=== PATIENT | male | born 1970 | race Caucasian/White ===

== ENCOUNTER → 2018-05-23 10:35 | Outpatient (CLI) | payer BC | END | disposition home or self-care (01) | LOC: D.HCCARDIO 10:35 → EDSEX 10:35 → D.HCCARDIO 11:00 | DX: Z03.89 Encounter for observation for other suspected diseases and conditions ruled out (principal) ==

== ENCOUNTER → 2018-05-28 10:40 | Outpatient (CLI) | payer BC ==
[~2018-05-28 10:40] MED LIST: LISINOP/HCTZ TAB 20-; MOBIC7.5 MG PO; NORCO 10-325 TA1 TAB PO; PAXIL30 MG PO
--- NOTE | 2018-05-30 16:39 | ST ---
PATIENT:RAZ SYLVESTER MEDICAL RECORD: [id number] SEX: M LOCATION:[facility] ORDER #: ADMISSION DATE: 05/28/18 AGE OF PATIENT: 47 REFERRING PHYSICIAN: INTERPRETING PHYSICIAN: CHUCKY OCHOA MD DATE OF SERVICE: 05/28/2018 PROCEDURE: Nuclear Stress Test. INDICATION: Chest pain, hypertension, family history of coronary artery disease, smoking. He was exercised on standard Lexiscan protocol with 30 mCi of sestamibi injected at peak stress 10 mCi used previously for rest images. FINDINGS: Gated SPECT reveals preserved ejection fraction at 65% with good wall motion and thickening and brightening throughout all segments. SPECT imaging: Cardiolite was used as myocardial perfusion agent. There are 2 large areas of reversible ischemia, the first is inferiorly. This is a basal, mid, apical, inferior segment. The degree of reversibility is moderate to severe. The amount of myocardium involved is moderate. The second is anteriorly. This is basal, mid, apical, and anterior segments. The degree of reversibility is mild. The amount of myocardium involved is large between the 2 defects. OVERALL IMPRESSION: This is a significantly abnormal nuclear stress test. Reversible ischemia anteriorly and inferiorly suggestive of multivessel coronary artery disease. We will proceed with coronary angiography as followup study. TRANSINT:[id number] Voice Confirmation ID: [id number] DOCUMENT ID: [id number] CHUCKY OCHOA MD at 1639 CC: [id number] DICTATION DATE: 05/29/18 1602 EQUITIES ANALYST: 05/30/18 0721 DEP CLI 05/28/18 [place] [address]
[2018-06-05 09:19] VITALS: BMI 33.0
== END | disposition home or self-care (01) ==
LOC: D.HCCARDIO 10:40
DX: R07.9 Chest pain, unspecified (principal); I10 Essential (primary) hypertension; Z72.0 Tobacco use

== ENCOUNTER 2018-06-05 08:41 | Outpatient (CLI) | payer BC ==
[~2018-06-05] VITALS: Ht 185.4 cm; Wt 113.6 kg
--- NOTE | ~2018-06-05 | HEMODYNAMI ---
PATIENT:RAZ SYLVESTER MEDICAL RECORD: [id number] : 68 LOCATION:[facility] ADMISSION DATE: 06/05/18 Generatedon:06/05/201810:47 Patient name: RAZ SYLVESTER Patient #: [id number] SSN: DO B: 1970 Date of study: 06/05/2018 Page: Of Hemodynamic Procedure Report Patient Data Patient Demographics Procedure consent was obtained First Name: RAZ Gender: Male Last Name: HIGINIO : 1970 Patient #: [id number] Age: 47 year(s) Race: Unknown Additional ID: [id number] Contact details Address: [address] [place] [address] State: [place] City: [place] Zip code: [address] Admission Admission Data Admission Date: 06/05/2018 Admission Time: 8:41 Procedure Procedure Types Cath Procedure Diagnostic Procedure LHC LHC w/Coronaries Procedure Description Procedure Date Procedure Date: 06/05/2018 Procedure Start Time: 10:36 Procedure End Time: 10:44 Procedure Staff Name Function Pedrito Fuller MD Performing Physician Deuce Bowen RT Monitor Kelsie Mar RT Scrub Jd Evans RN Nurse Nika Galvan RN Inventory Control Specialist Procedure Data Cath Procedure Fluoroscopy Diagnostic fluoroscopy Total fluoroscopy Time: 1.7 time: 1.7 min min Diagnostic fluoroscopy Total fluoroscopy dose: 400 dose: 400 mGy mGy Contrast Material Contrast Material Type Amount (ml) Isovue 300 31 Entry Location Entry Primary Successful Side Size Upsize Upsize Entry Closure Bernal ccessful Closure Location (Fr) 1 (Fr) 2 (Fr) Remarks Device Remarks Radial Right 6 Fr Mechanical artery Short Compression Estimated blood loss: 10 ml Diagnostic catheters Device Type Used For End Catheter Placement DIAGNOSTIC [place] 110cm 5 Procedure Fr catheter ([id number]) DIAGNOSTIC AR2 MOD 5 Fr Procedure catheter ([id number]) Procedure Complications No complications Procedure Medications Medication Administration Route Dosage Oxygen etCO2 Nasal cannula 2 l/min Heparin Flush Bag added to field 2 bags (1000units/500ml NS) 0.9% NaCl I.V. 100 ml/hr Radial Cocktail added to field 1 syringe (Verapomil 2mg/Nitro 400mcg/Heparin 1500units) Lidocaine 2% added to field 20 Versed I.V. 2 mg Fentanyl I.V. 50 mcg Versed I.V. 2 mg Fentanyl I.V. 50 mcg Versed I.V. 2 mg Fentanyl I.V. 50 mcg Hemodynamics Rest Heart Rate: 83 (bpm) Snapshots Pre Cath Intra NCS Post Cath Vital Signs Time Heart Resp SPO2 etCO2 NIBP Rhythm Pain Sedation Rate (ipm) (%) (mmHg) (mmHg) Status Level (bpm) 10:08:20 86 19 98 29.9 121/78(91) NSR 0 (11) 10(A) , No pain 10:12:34 92 21 100 28.5 118/81(96) NSR 0 (11) 10(A) , No pain 10:16:50 80 26 97 26.2 104/71(82) NSR 0 (11) 10(A) , No pain 10:21:04 78 44 97 33.7 107/63(76) NSR 0 (11) 10(A) , No pain 10:25:18 80 22 97 34.4 106/68(79) NSR 0 (11) 10(A) , No pain 10:29:32 81 49 97 21.7 109/65(77) NSR 0 (11) 10(A) , No pain 10:33:42 80 23 97 23.9 108/67(89) NSR 0 (11) 10(A) , No pain 10:37:56 85 16 98 32.9 108/65(76) NSR 0 (11) 10(A) , No pain 10:42:12 88 17 96 30.7 102/52(68) NSR 0 (11) 10(A) , No pain Medications Time Medication Route Dose Verified Delivered Reason Notes Ef fectiveness by by 10:02:22 Oxygen etCO2 2 l/min Pedrito Miles Per Nasal Alina Evans RN physician cannula 10:02:30 Heparin Flush added 2 bags Pedrito Miles used for Bag to Alina Evans guest relations agent (1000units/500ml field NS) 10:02:39 0.9% NaCl I.V. 100 Pedrito Miles Per ml/hr Alina Evans RN physician 10:02:47 Radial Cocktail added 1 Pedrito Miles used for (Verapomil to syringe Alina Evans RN procedure 2mg/Nitro field 400mcg/Heparin 1500units) 10:02:55 Lidocaine 2% added 20ml Pedrito Dennisy used for to vial Alina Evans RN procedure field 10:35:29 Versed I.V. 2 mg Pedrito Nika for Alina Galvan sedation RN 10:35:36 Fentanyl I.V. 50 mcg Pedrito Nika for Alina Galvan sedation RN 10:40:30 Versed I.V. 2 mg Pedrito Nika for Alina Galvan sedation RN 10:40:34 Fentanyl I.V. 50 mcg Pedrito Nika for Alina Galvan sedation RN 10:43:03 Fentanyl I.V. 50 mcg Pedrito Nika for Alina Galvan sedation RN 10:43:55 Versed I.V. 2 mg Pedrito Nika for Alina chou supply analyst Log Time Note 9:40:03 Deuce Bowen RT(R) sent for patient. Start room use. 9:56:10 Diagnostic Cath status Elective 9:56:11 Signed procedure consent form obtained from patient. 9:56:12 Time tracking: Regular hours (M-F 7:00 - 5:00) 9:56:17 Plan of Care:Hemodynamics will remain stable., Cardiac rhythm will remain stable., Comfort level will be maintained., Respiratory function will remain adequate., Patient/ family verbilizes understanding of procedure., Procedure tolerated without complication., Recovers from procedure without complications.. 10:02:22 Oxygen 2 l/min etCO2 Nasal cannula was administered by Jd Evans RN; Per physician; 10:02:30 Heparin Flush Bag (1000units/500ml NS) 2 bags added to field was administered by Jd Evans RN; used for procedure; 10:02:39 0.9% NaCl 100 ml/hr I.V. was administered by Jd Evans RN; Per physician; 10:02:47 Radial Cocktail (Verapomil 2mg/Nitro 400mcg/Heparin 1500units) 1 syringe added to field was administered by Jd Evans RN; used for procedure; 10:02:55 Lidocaine 2% 20ml vial added to field was administered by dJ Evans RN; used for procedure; 10:03:52 Patient received from Pre/Post Procedure Room to CCL 1 Alert and oriented. Tansferred to table in Supine position. 10:03:53 Warm blankets applied, and brenda hugger turned on for patient comfort. 10:03:54 Correct patient and procedure confirmed by team. 10:03:55 ECG and BP/O2 sat monitors applied to patient. 10:07:10 Vital chart was started 10:11:19 Baseline sample Acquired. 10:11:26 Rhythm: sinus rhythm 10:11:28 Full Disclosure recording started 10:11:46 H&P Date Dictated: 05/14/2018 Within 30 days and on chart., H&P Addendum completed by physician on day of procedure. (MUST COMPLETE FOR ALL OUTPATIENTS). 10:11:47 Pre-procedure instructions explained to patient. 10:11:48 Pre-op teaching completed and patient verbalized understanding. 10:12:05 Family in waiting room. 10:12:07 Patient NPO since Midnight. 10:12:08 Is the patient allergic to Iodine/contrast media? No. 10:12:14 Is patient on blood thinner?No 10:12:16 Patient diabetic? No. 10:12:21 Previous problem with sedation/anesthesia? No ? 10:12:22 Snore? Yes 10:12:23 Sleep apnea? No 10:12:24 Deviated septum? No 10:12:24 Opens mouth fully? Yes 10:12:26 Sticks out tongue? Yes 10:12:28 Airway obstruction? No ? 10:12:31 Dentures? No ? 10:12:36 Pre procedure: right dorsailis pedis pulse 1+ Palpable, but thready & weak; easily obliterated 10:12:41 Modified Serjio's test Ulnar < 7 seconds 10:12:42 Patient pain scale 0/10 ?. 10:12:46 IV patent on arrival in left forearm with 0.9% NaCl at [facility]. 10:12:47 Lab results completed and on chart. 10:12:50 Right Radial & Right Groin area was prepped with chlora-prep and draped in sterile fashion 10:12:51 Alarms reviewed by R. N. 10:12:52 Sharps counted by scrub and verified by R.N. 10:34:37 --------ALL STOP TIME OUT------ 10:34:37 Final Timeout: patient, procedure, and site verified with staff and physician. All members of the team are in agreement. 10:34:39 Right Radial & Right Groin site verified by team. 10:34:43 Physical assessment completed. ASA score P 2 - A patient with mild systemic disease as per Pedrito Fuller MD. 10:34:46 Sedation plan: IV Moderate Sedation Medication:Versed, Fentanyl 10:35:29 Versed 2 mg I.V. was administered by Nika Galvan RN; for sedation; 10:35:36 Fentanyl 50 mcg I.V. was administered by Nika Galvan RN; for sedation; 10:35:57 Use device set Radial Dx or PCI 10:35:59 Tegaderm 4 x 4 (1626W) opened to sterile field. 10:36:01 ACIST Hand Control (00705) opened to sterile field. 10:36:01 ACIST Manifold (89611) opened to sterile field. 10:36:03 ACIST Syringe (45679) opened to sterile field. 10:36:04 Medline Cath Pack ([id number]) opened to sterile field. 10:36:04 Bag Decanter (2002S) opened to sterile field. 10:36:05 DIAGNOSTIC WIRE .035 260cm J wire (343810) opened to sterile field. 10:36:05 MBrace Wrist Support ([id number]) opened to sterile field. 10:36:21 SHEATH 6FR RAIN (5314072) NO COST SUPPLY opened to sterile field. 10:36:32 Procedure started. 10:36:37 Local anesthetic to right radial artery with Lidocaine 2% by Pedrito Fuller MD.INITIAL ACCESS ONLY 10:39:07 A 6 Fr Short sheath was inserted into the Right Radial artery 10:39:25 A DIAGNOSTIC [place] 110cm 5 Fr catheter (640082) was advanced over the wire and used for Procedure. 10:39:27 LV angiography performed. 10:39:29 LV gram done using RO 10:39:35 EF : 55 % 10:39:45 Injector settings: Ml/sec: 7, Volume: 15, 10:40:29 LCA angiography performed. 10:40:30 Versed 2 mg I.V. was administered by Nika Galvan RN; for sedation; 10:40:34 Fentanyl 50 mcg I.V. was administered by Nika Galvan RN; for sedation; 10:40:42 Catheter exchanged over wire. 10:40:56 A DIAGNOSTIC AR2 MOD 5 Fr catheter (117002F) was advanced over the wire and used for Procedure. 10:41:51 RCA angiography performed. 10:41:59 Catheter removed. 10:42:03 TR BAND Standard ([id number]) opened to sterile field. 10:42:52 Sheath removed intact; hemostasis achieved with Mechanical Compression to the Right Radial artery. 10:42:54 Procedure ended.(Physican Out) 10:43:03 Fentanyl 50 mcg I.V. was administered by Nika Galvan RN; for sedation; 10:43:45 Fluoroscopy time 01.70 minutes. 10:43:48 Fluoroscopy dose: 400 mGy 10:43:48 Flurop Dose total: 400 10:43:52 Contrast amount:Isovue 300 31ml. 10:43:54 Sharps counted by scrub and verified by R.N. 10:43:55 Versed 2 mg I.V. was administered by Nika Galvan RN; for sedation; 10:43:56 Insertion/operative site no bleeding no hematoma. 10:43:58 TR band inflated with 10cc of air. 10:44:00 Post Procedure Pulses reassessed and unchanged 10:44:02 Post-procedure physical assessment completed. ASA score P 2 - A patient with mild systemic disease as per Pedrito Fuller MD. 10:44:05 Post procedure rhythm: unchanged. 10:44:08 Estimated blood loss: 10 ml 10:44:11 Post procedure instruction explained to patient.Patient verbalizes understanding. 10:44:11 Patient needs reinforcement of post procedure teaching. 10:44:17 Procedure and supply charges have been captured, reviewed, submitted and are correct. 10:44:19 Procedure Complication : No complications 10:44:35 Vital chart was stopped 10:44:35 See physician's report for complete and final results. 10:44:37 Report given to Pre/Post Procedure Room. 10:44:39 Patient transfered to Pre/Post Procedure Room with Stretcher. 10:44:42 Procedure ended. 10:44:42 Full Disclosure recording stopped 10:46:30 End room use (Document Last) Device Usage Item Name Manufacture Quantity Catalog Hospital Part Current Minimal Lot# / Number Charge Number Stock Stock Serial# Code Tegaderm 4 3M 1 1626W 162453 162919 736240 5 x 4 (1626W) ACIST Hand Acist 1 25735 271241 940926 069922 5 Control Medical (09732) Systems Inc ACIST Acist 1 96206 067440 549101 840007 5 Manifold Medical (80651) Systems Inc ACIST Acist 1 23579 220171 676932 885530 20 Syringe Medical (17708) Systems Inc Medline Medline 1 [id number] 551057 45569 227399 5 Cath Pack ([id number]) Bag Microtek 1 2001S 679879 00783 590074 5 Decanter Medical Inc. () DIAGNOSTIC [facility] [place] 1 848009 950646 122901 555787 30 WIRE .035 260cm J wire (763229) MBrace Advanced 1 140-0250-00 720355 66833 069470 5 Wrist Vascular Support Dynamics ([id number]) SHEATH 6FR [place] 1 6926160 970988 356476 5 [facility] (1577187) NO COST SUPPLY DIAGNOSTIC Terumo 1 40-1125 403282 519436 353626 5 [place] 110cm 5 Fr catheter (544198) DIAGNOSTIC Cardinal 1 [id number] 984193 483452 777367 20 AR2 MOD 5 Health Fr catheter (884412B) TR BAND Terumo 1 [id number] 431059 184670 816556 40 Standard ([id number]) Signature Audit [place] Stage Time Signature Unsigned Intra-Procedure 06/05/2018 Deuce Bowen 10:47:09 AM RT(R) Signatures Monitor : Deuce Bowen RT Signature : Date : Time : [facility] [address] [place] [address]
[2018-06-05] MEDS ORDERED: PAXIL30 MG PO (09:14)
[2018-06-05] MEDS ORDERED: NORCO 10-325 TA1 TAB PO (09:14)
[2018-06-05] MEDS ORDERED: LISINOP/HCTZ TAB 20- (09:15)
[2018-06-05] MEDS ORDERED: MOBIC7.5 MG PO (09:16)
[2018-06-05 09:19] VITALS: BP 123/83; Ht 185.4 cm; Wt 113.6 kg
[2018-06-05 09:37] LABS: HEMATOCRIT 42.8 % (42.0-54.0); HEMOGLOBIN 14.7 g/dL (13.5-17.5); LYMPHOCYTES 20.6 % (15-50); MCH 31.7 pg (26.0-34.0); MCHC 34.3 g/dL (31.0-37.0); MCV 92.4 fL (80.0-100.0); MEAN PLATELET VOLUME 9.4 fL (7.4-10.4); NEUTROPHILS 70.6 % (40-80); PLATELET COUNT 181 10x3/uL (130-400); RBC 4.63 10x6/uL (4.20-6.10); RDW 13.1 % (11.5-14.5); WBC 7.6 10x3/uL (4.8-10.8)
[2018-06-05 09:44] LABS: ANION GAP 13.2 mmol/L (8-16); CALCIUM 8.8 mg/dL (8.5-10.1); CARBON DIOXIDE 26.9 mmol/L (21.0-32.0); CREATININE - SERUM 1.3 mg/dL (0.6-1.3); POTASSIUM - SERUM 4.1 mmol/L (3.5-5.1)
--- NOTE | 2018-06-05 11:07 | NUR ---
DR. OCHOA ROUNDED ON PT AND PT'S FAMILY.
--- NOTE | 2018-06-05 11:40 | NUR ---
RIGHT WRIST TR BAND IN PLACE. NO BLEEDING/HEMATOMA NOTED. VSS. PT SITTING UP AND EATING A SANDWICH.
--- NOTE | 2018-06-05 11:45 | NUR ---
2cc REMOVED FROM RIGHT RADIAL TR BAND. NO BLEEDING/HEMATOMA NOTED.
--- NOTE | 2018-06-05 12:00 | NUR ---
3cc OF AIR REMOVED FROM TR BAND. PT TOLERATED WELL. NO BLEEDING/HEMATOMA NOTED. VSS.
--- NOTE | 2018-06-05 12:15 | NUR ---
3cc OF AIR REMOVED FROM TR BAND. NO BLEEDING/HEMATOMA NOTED. RIGHT ARM PIV D/C'D WITH CATH TIP INTACT. PT INSTRUCTED TO GET UP AND DRESSED.
--- NOTE | 2018-06-05 12:35 | NUR ---
DISCUSSED DISCHARGE INSTRUCTIONS WITH PT AND PT'S FAMILY. THEY VOICED UNDERSTANDING. RIGHT RADIAL TR BAND REMOVED. DRESSING APPLIED. NO BLEEDING OR HEMATOMA NOTED.
--- NOTE | 2018-06-05 12:45 | NUR ---
RIGHT WRIST DRESSING C/D/I. BRACE ON RIGHT WRIST AND PT INSTRUCTED TO REMOVE AFTER 2 HOURS. THEY VOICED UNDERSTANDING. NO HEMATOMA NOTED. PT HAS ALL BELONGINGS IN HAND. TAKEN OUT TO VEHICLE BY WHEELCHAIR. NO S/S OF DISTRESS NOTED.
--- NOTE | 2018-06-05 18:37 | OP ---
PATIENT NAME: RAZ SYLVESTER MEDICAL RECORD: [id number] :68 LOCATION:[facility] ADMISSION DATE: SURGEON: CHUCKY OCHOA MD DATE OF OPERATION: 06/05/2018 PROCEDURES: 1. Left heart catheterization. 2. Selective coronary angiography. 3. Left ventriculogram. INDICATION: Chest pain compatible with angina. PROCEDURE IN DETAIL: After informed consent was obtained and after a detailed description of risks, benefits as well as alternative therapies, the patient elected to proceed with angiogram and a heart catheterization. The right radial area was prepped and draped in normal sterile fashion. Right radial artery was cannulated via modified Seldinger technique with placement of 6-Nigerien sheath. All catheters exchanged through this sheath. FINDINGS: The left ventriculogram was performed in standard 30-degree RO view, reveals good cardiac wall motion throughout all segments. Overall ejection fraction estimated 60%. SELECTIVE CORONARY ANGIOGRAPHY: Left main, left anterior descending, left circumflex, right coronary artery are all smooth-walled vessels with no angiographic evidence of coronary artery disease. OVERALL IMPRESSION: 1. No angiographic evidence of coronary artery disease. 2. Normal left heart pressures. 3. Normal left ventricular systolic function. Chest pain is noncardiac in etiology. No further cardiac workup needs to be ascertained. TRANSINT:[id number] Voice Confirmation ID: [id number] DOCUMENT ID: [id number] CHUCKY OCHOA MD at 1837 CC: [id number] DICTATION DATE: 06/05/18 1045 ANY COMMODITY SALES DELIVERER: 06/05/18 1118 DEP CLI 06/05/18 [address] [place] [address]
== END 2018-06-05 12:45 | disposition home or self-care (01) ==
LOC: D.CATH 08:41
PROVIDERS: Internal Medicine Interventional Cardiology
DX: I20.9 Angina pectoris, unspecified (principal); R94.30 Abnormal result of cardiovascular function study, unspecified

== ENCOUNTER 2019-03-18 08:08 | Emergency (ER) | payer BC ==
[~2019-03-18] VITALS: Ht 185.4 cm; Wt 113.6 kg
[2019-03-18 08:27] VITALS: BP 117/69; Ht 185.4 cm; Wt 113.6 kg
[2019-03-18] MEDS ORDERED: OXYCONTIN10 MG PO (08:28)
[2019-03-18] MEDS ORDERED: PERCOCET 7.5/321 TAB PO (08:29)
[2019-03-18 08:58] LABS: BASOPHILS 0.3 % (0-2); EOSINOPHILS 1.3 % (0-7); HEMATOCRIT 47.7 % (42.0-54.0); HEMOGLOBIN 16.5 g/dL (13.5-17.5); IMMATURE GRANULOCYTES 0.6 % (0-5); LYMPHOCYTES 20.8 % (15-50); MCH 33.2 pg (26.0-34.0); MCHC 34.6 g/dL (31.0-37.0); MEAN PLATELET VOLUME 10.3 fL (7.4-10.4); MONOCYTES 10.9 % (2-11); NEUTROPHILS 66.1 % (40-80); RBC 4.97 10x6/uL (4.20-6.10); RDW 12.1 % (11.5-14.5); WBC 10.1 10x3/uL (4.8-10.8)
[2019-03-18 09:03] LABS: PLATELET COUNT 246 10x3/uL (130-400)
[2019-03-18 09:05] LABS: ANION GAP 12.3 mmol/L (8-16); CALCIUM 8.9 mg/dL (8.5-10.1); CREATININE - SERUM 1.4 mg/dL (0.6-1.3); POTASSIUM - SERUM 4.3 mmol/L (3.5-5.1)
[2019-03-18 09:11] LABS: ALBUMIN 3.4 g/dL (3.4-5.0); BILIRUBIN - TOTAL 0.35 mg/dL (0.2-1.3); PROTEIN - SERUM 6.8 g/dL (6.4-8.2)
[2019-03-18] MEDS ORDERED: AMOXICILLIN500 M1 PO (10:59)
[2019-03-18] MEDS ORDERED: MUCINEX DM ER1 EAC1 PO (10:59)
[2019-03-18] MEDS ORDERED: STERAPRED DS 1010 MG PO (10:59)
== END 2019-03-18 11:25 | disposition home or self-care (01) ==
LOC: D.ER 08:08
PROVIDERS: Emergency Medicine
DX: J40 Bronchitis, not specified as acute or chronic (principal); J06.9 Acute upper respiratory infection, unspecified